=== PATIENT | male | born 1960 | race Caucasian/White ===

== ENCOUNTER 2017-02-13 16:00 | Outpatient (RCR) | payer OTHER ==
[2017-03-27] MEDS ORDERED: FLEXERIL 1010 MG/TAB PO (12:57)
[2017-03-27] MEDS ORDERED: PRINIVIL10 MG PO (12:58)
[2017-03-27] MEDS ORDERED: NORCO 325 MG-51 TAB PO (12:58)
[2017-03-27] MEDS ORDERED: TENORETIC 50 501 TAB PO (12:59)
[2017-03-27] MEDS ORDERED: MULTI VITAMINS1 TAB PO (12:59)
[2017-03-27] MEDS ORDERED: PRILOSEC 20MG20 MG PO (13:00)
== END 2017-02-19 08:36 ==
LOC: WSPT 16:00
DX: M54.2 Cervicalgia (principal); M54.5 Low back pain; M62.838 Other muscle spasm
CPT/HCPCS: G0283-GP

== ENCOUNTER → 2017-03-30 | Outpatient (CLI) | payer OTHER ==
[~2017-03-30] VITALS: Ht 180.3 cm; Wt 100.8 kg
[~2017-03-30] MED LIST: CLARITIN 1010 MG/TAB PO; FLEXERIL 1010 MG/TAB PO; FLONASEALLERGY NS; MULTI VITAMINS1 TAB PO; NORCO 325 MG-51 TAB PO; PRILOSEC 20MG20 MG PO; PRINIVIL10 MG PO; TENORETIC 50 501 TAB PO
[2017-03-30 06:50] VITALS: BP 136/76; PULSE 75
[2017-03-30 08:20] VITALS: BP 117/83; PULSE 73
== END ==
LOC: COL.RAD 06:30
DX: M47.12 Other spondylosis with myelopathy, cervical region (principal); R93.8 Abnormal findings on diagnostic imaging of other specified body structures; M54.2 Cervicalgia
CPT/HCPCS: J1100

== ENCOUNTER → 2017-04-30 | Outpatient (CLI) | payer OTHER ==
[~2017-04-30] VITALS: Ht 180.3 cm; Wt 98.6 kg
[2017-04-30 07:12] VITALS: BP 120/88; PULSE 75
[2017-04-30 08:26] VITALS: BP 124/94; PULSE 73
== END ==
LOC: COL.RAD 06:53
DX: M47.12 Other spondylosis with myelopathy, cervical region (principal)
CPT/HCPCS: J1100; Q9965

== ENCOUNTER → 2017-05-15 | Outpatient (CLI) | payer OTHER ==
[~2017-05-15] VITALS: Ht 180.3 cm; Wt 99.9 kg
[2017-05-15 07:02] VITALS: BP 124/93; PULSE 74
[2017-05-15 08:35] VITALS: BP 116/93; PULSE 69
== END ==
LOC: COL.RAD 06:44
DX: M54.12 Radiculopathy, cervical region (principal); M47.12 Other spondylosis with myelopathy, cervical region
CPT/HCPCS: J1100

== ENCOUNTER → 2019-04-21 | Outpatient (CLI) | payer MEDICAID | LOC: COL.RAD 07:23 | DX: M99.03 Segmental and somatic dysfunction of lumbar region (principal); M48.061 Spinal stenosis, lumbar region without neurogenic claudication; M51.27 Other intervertebral disc displacement, lumbosacral region; M47.816 Spondylosis without myelopathy or radiculopathy, lumbar region; M51.36 Other intervertebral disc degeneration, lumbar region ==

== ENCOUNTER → 2019-06-10 | Outpatient (CLI) | payer MEDICAID | LOC: MHCPAIN 09:21 | DX: G89.29 Other chronic pain (principal); M47.817 Spondylosis without myelopathy or radiculopathy, lumbosacral region; M54.16 Radiculopathy, lumbar region; M53.3 Sacrococcygeal disorders, not elsewhere classified | CPT/HCPCS: G0463 ==

== ENCOUNTER → 2019-06-19 | Outpatient (CLI) | payer MEDICAID | LOC: MHCPAIN 08:51 | DX: M47.817 Spondylosis without myelopathy or radiculopathy, lumbosacral region (principal); M54.16 Radiculopathy, lumbar region | CPT/HCPCS: J1100; Q9967 ==

== ENCOUNTER → 2019-07-01 | Outpatient (CLI) | payer MEDICAID | LOC: MHCPAIN 10:37 | DX: M47.817 Spondylosis without myelopathy or radiculopathy, lumbosacral region (principal); M54.16 Radiculopathy, lumbar region | CPT/HCPCS: G0463 ==

== ENCOUNTER → 2019-07-17 | Outpatient (CLI) | payer MEDICAID | LOC: MHCPAIN 09:00 | DX: M51.27 Other intervertebral disc displacement, lumbosacral region (principal); M54.17 Radiculopathy, lumbosacral region | CPT/HCPCS: J1100; Q9967 ==

== ENCOUNTER → 2019-08-13 | Outpatient (CLI) | payer MEDICAID | LOC: MHCPAIN 11:14 | DX: M47.817 Spondylosis without myelopathy or radiculopathy, lumbosacral region (principal); M54.16 Radiculopathy, lumbar region | CPT/HCPCS: G0463 ==

== ENCOUNTER → 2019-08-28 | Outpatient (CLI) | payer MEDICAID | LOC: MHCPAIN 08:14 | DX: M51.27 Other intervertebral disc displacement, lumbosacral region (principal); M54.17 Radiculopathy, lumbosacral region | CPT/HCPCS: J1100; Q9967 ==

== ENCOUNTER → 2019-09-10 | Outpatient (CLI) | payer MEDICAID | LOC: MHCPAIN 08:53 | DX: M53.3 Sacrococcygeal disorders, not elsewhere classified (principal); M54.2 Cervicalgia; M25.511 Pain in right shoulder | CPT/HCPCS: G0463 ==

== ENCOUNTER → 2021-03-29 | Outpatient (CLI) | payer MEDICAID | LOC: MHCPAIN 12:44 | DX: M47.812 Spondylosis without myelopathy or radiculopathy, cervical region (principal); M54.2 Cervicalgia; M54.12 Radiculopathy, cervical region; G89.29 Other chronic pain | CPT/HCPCS: G0463 ==

== ENCOUNTER → 2021-04-21 | Outpatient (CLI) | payer MEDICAID | LOC: MHCPAIN 08:00 | DX: M47.812 Spondylosis without myelopathy or radiculopathy, cervical region (principal); M54.12 Radiculopathy, cervical region | CPT/HCPCS: J1100; Q9967 ==

== ENCOUNTER → 2021-05-31 | Outpatient (CLI) | payer MEDICAID | LOC: MHCPAIN 08:03 | DX: M54.50 Low back pain, unspecified (principal); M47.812 Spondylosis without myelopathy or radiculopathy, cervical region; M54.2 Cervicalgia | CPT/HCPCS: G0463 ==

== ENCOUNTER → 2021-10-05 | Outpatient (CLI) | payer MEDICAID | LOC: COL.PUL 09:13 | DX: J44.9 Chronic obstructive pulmonary disease, unspecified (principal); Z77.123 Contact with and (suspected) exposure to radon and other naturally occurring radiation ==

== ENCOUNTER → 2021-11-30 | Outpatient (CLI) | payer MEDICAID | LOC: COL.RAD 10:15 | DX: M19.012 Primary osteoarthritis, left shoulder (principal) ==

== ENCOUNTER → 2021-11-30 | Outpatient (CLI) | payer MEDICAID | LOC: MHCPAIN 09:43 | DX: M47.812 Spondylosis without myelopathy or radiculopathy, cervical region (principal); M54.2 Cervicalgia; M25.512 Pain in left shoulder | CPT/HCPCS: G0463 ==

== ENCOUNTER → 2021-12-29 | Outpatient (CLI) | payer MEDICAID | LOC: MHCPAIN 11:03 | DX: M47.812 Spondylosis without myelopathy or radiculopathy, cervical region (principal); M54.2 Cervicalgia ==

== ENCOUNTER → 2022-01-04 | Outpatient (CLI) | payer MEDICAID | LOC: COL.RAD 13:18 | DX: R22.2 Localized swelling, mass and lump, trunk (principal) ==

== ENCOUNTER → 2022-03-02 | Outpatient (CLI) | payer MEDICAID | LOC: MHCPAIN 10:03 | DX: M47.812 Spondylosis without myelopathy or radiculopathy, cervical region (principal); M54.2 Cervicalgia | CPT/HCPCS: G0463; J0461 ==